=== PATIENT | male | born 1980 | race Caucasian/White ===

== ENCOUNTER 2019-07-08 10:02 | Inpatient (IN) | payer OTHER ==
[~2019-07-08] VITALS: Ht 190.5 cm; Wt 93.0 kg
[~2019-07-08 10:02] MED LIST: DOXY100 PO; HYDACE5 PO; IBUP600 PO; LEVO750 PO; OMEP20ER PO; OXYACE5T PO; OXYC1TAB11 PO; Percocet 10-321 EACH PO; RXHYDACE PO; SODCHL.65S; TRAM50 PO; Vibramycin100 MG PO
[2019-07-08 11:51] LABS: BASOPHILS ABSOLUTE AUTO 0.04 K/mm3 (0.00-0.23); BASOPHILS PERCENT AUTO 0 % (0-2); EOSINOPHILS ABSOLUTE AUTO 0.25 K/mm3 (0.00-0.68); EOSINOPHILS PERCENT AUTO 3 % (0-6); Hematocrit 47.7 % (37.0-53.0); Hemoglobin 15.1 g/dL (13.5-17.5); IMMATURE GRAN ABSOLUTE AUTO 0.03 K/mm3 (0.00-0.10); IMMATURE GRAN PERCENT AUTO 0 % (0-1); LYMPHOCYTES ABSOLUTE AUTO 1.69 K/mm3 (0.84-5.20); LYMPHOCYTES PERCENT AUTO 18 % (21-46); MONOCYTES ABSOLUTE AUTO 0.95 K/mm3 (0.16-1.47); MONOCYTES PERCENT AUTO 10 % (4-13); Mean Corpuscular HGB 30.4 pg (26.0-34.0); Mean Corpuscular HGB Conc 31.7 g/dL (31.5-36.5); Mean Corpuscular Volume 96 fL (80-100); Mean Platelet Volume 10.3 fL (9.1-12.4); NEUTROPHILS ABSOLUTE AUTO 6.44 K/mm3 (1.96-9.15); NEUTROPHILS PERCENT AUTO 69 % (41-73); Platelet Count 322 K/mm3 (150-400); RDW Coefficient Variation 12.6 % (11.7-14.2); RDW Standard Deviation 44.2 fL (35.1-46.3); Red Blood Cell Count 4.96 M/mm3 (4.30-5.90)
[2019-07-08 12:04] LABS: Anion Gap 6 mmol/L (6-16); Blood Urea Nitrogen 10 mg/dL (8-24); Bun/Creatinine Ratio 12.1 (12.0-20.0); CO2, Blood 29 mmol/L (21-32); Chloride, Blood 105 mmol/L (98-108); Creatinine, Blood 0.83 mg/dL (0.60-1.20); Glomerular Filtration Rate >60 (60-); Glucose, Blood 93 mg/dL (70-99); Potassium, Blood 4.1 mmol/L (3.5-5.5); Sodium, Blood 140 mmol/L (136-145)
--- NOTE | 2019-07-08 16:56 | NUR ---
INCENTIVE SPIROMETER GIVEN W/ INSTRUCTIONS, 1 NORCO GIVEN FOR C/O 8/10 PAIN ON R CLAVICLE AREA, CONT. TO MONITOR FOR ANY CHANGES.
--- NOTE | 2019-07-08 18:06 | NUR ---
SUMMARY PT TOLERATED REGULAR DINNER WELL, DENIES ANY SOB, RATES PAIN AT 7/10 CURRENTLY, USING IS DIRECTED, CHEST TUBE INTACT, DRESSING C/D/I, SANGUINOUS DRAINAGE NOTED IN TUBING, NO ACUTE CHANGES THIS SHIFT.
--- NOTE | 2019-07-09 04:51 | NUR ---
SHIFT SUMMARY LYING IN HIGH FOWLERS WITH EYES CLOSED. HAS BEEN MEDICATED FOR PAIN X4 THIS SHIFT. GOOD TIDALING NOTED WITH EACH BREATH IN CHEST TUBE LINE. WATERSEAL CONNECTION IS PATENT, BUBBLING NOTED IN LINE. DENIES FURTHER NEEDS AT THIS TIME. SAFETY MEAURES IN PLACE. WILL GIVE HANF OFF TO ONCOMING SHIFT USING SBAR.
[2019-07-09 05:40] LABS: BASOPHILS ABSOLUTE AUTO 0.04 K/mm3 (0.00-0.23); BASOPHILS PERCENT AUTO 0 % (0-2); EOSINOPHILS ABSOLUTE AUTO 0.31 K/mm3 (0.00-0.68); EOSINOPHILS PERCENT AUTO 2 % (0-6); Hematocrit 44.9 % (37.0-53.0); Hemoglobin 14.7 g/dL (13.5-17.5); IMMATURE GRAN ABSOLUTE AUTO 0.04 K/mm3 (0.00-0.10); IMMATURE GRAN PERCENT AUTO 0 % (0-1); LYMPHOCYTES ABSOLUTE AUTO 1.74 K/mm3 (0.84-5.20); LYMPHOCYTES PERCENT AUTO 12 % (21-46); MONOCYTES ABSOLUTE AUTO 1.21 K/mm3 (0.16-1.47); MONOCYTES PERCENT AUTO 8 % (4-13); Mean Corpuscular HGB 30.8 pg (26.0-34.0); Mean Corpuscular HGB Conc 32.7 g/dL (31.5-36.5); Mean Corpuscular Volume 94 fL (80-100); Mean Platelet Volume 10.3 fL (9.1-12.4); NEUTROPHILS ABSOLUTE AUTO 11.52 K/mm3 (1.96-9.15); NEUTROPHILS PERCENT AUTO 78 % (41-73); Platelet Count 305 K/mm3 (150-400); RDW Coefficient Variation 12.3 % (11.7-14.2); RDW Standard Deviation 43.2 fL (35.1-46.3); Red Blood Cell Count 4.77 M/mm3 (4.30-5.90); White Blood Cell Count 14.86 K/mm3 (4.00-11.30)
[2019-07-09 06:05] LABS: Anion Gap 7 mmol/L (6-16); Blood Urea Nitrogen 13 mg/dL (8-24); Bun/Creatinine Ratio 16.2 (12.0-20.0); CO2, Blood 25 mmol/L (21-32); Chloride, Blood 105 mmol/L (98-108); Glomerular Filtration Rate >60 (60-); Glucose, Blood 103 mg/dL (70-99); Sodium, Blood 137 mmol/L (136-145)
--- NOTE | 2019-07-09 11:39 | NUR ---
ENCOURAGED TO US IS AND COUGH, PT UNABLE TO COUGH EFFECTIVELY DUE TO INCREASED PAIN WHEN COUGHING, DENIES ANY SOB OR DYSPNEA, APPEARS TO BE IN NO DISTRESS, NPO AT THIS TIME, PLAN FOR XRAY AT NOON AND POSSIBLE LARGER CHEST TUBE PLACEMENT PER DR. ACOSTA PENDING XRAY RESULTS, PT AWARE OF PLAN.
--- NOTE | 2019-07-09 17:45 | NUR ---
SUMMARY DENIED ANY SOB ALL DAY, PT USING IS INSTRUCTED AND COUGHING, PAIN TOLERABLE W/ PO AND IV MEDS, CHEST TUBE DSG C/D/I, CHEST TUBE CONTINUES TO DRAIN SANGUINOUS DRAINAGE, OOB TO CHAIR, TOLERATED WELL, NO ACUTE CHANGES THIS SHIFT, REPORT GIVEN TO TAMIKO MADERA.
--- NOTE | 2019-07-10 07:48 | NUR ---
SUMMARY PT REPORTS ADEQUATE PAIN CONTROL. VERB BREATHING FEELS IMPROVED. CT WITH RED DRNG. PT NPO PENDING RADIOLOGY AND DR FOLLOW UP. PT VERB UNDERSTANDING.
--- NOTE | 2019-07-10 17:46 | NUR ---
SHIFT SUMMARY PT A&OX4, VSS, S/P LEFT LATERAL CHEST TUBE R/T L SIDED PNEUMO, DRAINING SANGUINOUS 100 MLS THIS SHIFT. PT DENIES CP AND SOB, DEMONSTRATING I.S. AND GOOD COUGH EFFORT. VOIDING WELL AND HAD BM TODAY. SL. GALILEO PO. PAIN MANAGED WELL WITH NORCO AND TORADOL. WILL REPORT TO ONCOMING MONSERRAT RN.
[2019-07-11] MEDS ORDERED: HYDR1TAB94 PO (08:35)
[2019-07-11] MEDS ORDERED: Robaxin750 MG PO (08:36)
--- NOTE | 2019-07-11 13:36 | NUR ---
PT LEFT AMA AT APPROXIMATELY 1300, NOTICING PT NOT IN ROOM FROM 1115 ON. IV WAS STILL IN PT'S LEFT ARM. SURGEON NOTIFIED.
== END 2019-07-11 13:11 | disposition left against medical advice (07) | DRG 200 ==
LOC: ER 10:02 → SURS 15:02
PROVIDERS: Emergency Medicine; ADMIT Surgery
PROC: 0W9900Z Drainage of Right Pleural Cavity with Drainage Device, Open Approach (ICD-10-PCS; principal; 2019-07-08)
DX: S27.2XXA Traumatic hemopneumothorax, initial encounter (principal); S22.41XA Multiple fractures of ribs, right side, initial encounter for closed fracture; S42.001A Fracture of unspecified part of right clavicle, initial encounter for closed fracture; F17.210 Nicotine dependence, cigarettes, uncomplicated; Y04.2XXA Assault by strike against or bumped into by another person, initial encounter; Y93.9 Activity, unspecified; Y92.9 Unspecified place or not applicable
CPT/HCPCS: 32551; 36415; 71045; 71101; 80048; 85025; 96374-59; 96375-59; 99285-25; A9270-GY; J1170; J1650; J1885; J2270; J3010; J7120

== ENCOUNTER 2019-07-20 16:54 | Emergency (ER) | payer OTHER ==
[~2019-07-20] VITALS: Ht 188 cm; Wt 81.7 kg
[~2019-07-20 16:54] MED LIST changes: +HYDR1TAB94 PO; +Robaxin750 MG PO
[2019-07-20 17:36] LABS: Hematocrit 39.7 % (37.0-53.0); Hemoglobin 13.1 g/dL (13.5-17.5); Mean Corpuscular HGB 30.5 pg (26.0-34.0); Mean Corpuscular Volume 93 fL (80-100); Mean Platelet Volume 9.2 fL (9.1-12.4); Platelet Count 472 K/mm3 (150-400); RDW Coefficient Variation 12.1 % (11.7-14.2); RDW Standard Deviation 41.4 fL (35.1-46.3); Red Blood Cell Count 4.29 M/mm3 (4.30-5.90); White Blood Cell Count 17.25 K/mm3 (4.00-11.30)
[2019-07-20 17:52] LABS: Anion Gap 8 mmol/L (6-16); Blood Urea Nitrogen 13 mg/dL (8-24); Bun/Creatinine Ratio 12.9 (12.0-20.0); CO2, Blood 23 mmol/L (21-32); Calcium, Blood 9.4 mg/dL (8.5-10.1); Chloride, Blood 108 mmol/L (98-108); Creatinine, Blood 1.01 mg/dL (0.60-1.20); Glomerular Filtration Rate >60 (60-); Glucose, Blood 89 mg/dL (70-99); Potassium, Blood 4.1 mmol/L (3.5-5.5); Sodium, Blood 139 mmol/L (136-145)
== END 2019-07-20 20:34 | disposition home or self-care (01) ==
LOC: ER 16:54
PROVIDERS: Emergency Medicine
DX: S27.0XXD Traumatic pneumothorax, subsequent encounter (principal); S22.41XD Multiple fractures of ribs, right side, subsequent encounter for fracture with routine healing; K21.9 Gastro-esophageal reflux disease without esophagitis; F32.9 Major depressive disorder, single episode, unspecified; F17.210 Nicotine dependence, cigarettes, uncomplicated; V89.2XXD Person injured in unspecified motor-vehicle accident, traffic, subsequent encounter
CPT/HCPCS: 36415; 71045; 80048; 85027; 99283-25